=== PATIENT | male | born 1950 | race Caucasian/White ===

== ENCOUNTER 2016-08-19 19:49 | Emergency (ER) | payer MEDICARE, OTHER ==
[2016-08-19] MEDS ORDERED: methylPREDNISolone Sodium Succinate 125 MG/2 ML SDV IM ONE (20:23)
--- NOTE | 2016-08-19 20:30 | EDM.PDOC ---
ED HPI Allergic Reaction - General Chief Complaint: Allergic Reaction Stated Complaint: POSSIBLE ALLERGIC REACTION- THROAT SWELLING; WOOZY Time Seen by Provider: 08/19/16 20:20 Source of Information: Reports: Patient History Limitations: Reports: No limitations - History of Present Illness INITIAL COMMENTS - FREE TEXT/NARRATIVE: AndHISTORY AND PHYSICAL: History of present illness: [66-year-old male with a history of allergy to shrimp as well as sulfa antibiotics, now presents emergency department with hives and itching after eating shrimp earlier today. Patient had hives as a child when he would eat shrimp. As an adult patient often eats shrimp and states he only gets hives if he eats a lot. He did eat them today after which he had hives and itching. No voice changes difficulty breathing or wheezing Review of systems: As per history of present illness and below otherwise all systems reviewed and negative. Past medical history: As per history of present illness and as reviewed below otherwise noncontributory. Surgical history: As per history of present illness and as reviewed below otherwise noncontributory. Social history: No reported history of drug or alcohol abuse. Family history: As per history of present illness and as reviewed below otherwise noncontributory. Physical exam: Patient with mild diffuse urticaria. Normal oropharynx, normal voice no stridor no wheezing no tachypnea or respirate symptoms whatsoever HEENT: Atraumatic, normocephalic, pupils reactive, negative for conjunctival pallor or scleral icterus, mucous membranes moist, throat clear, neck supple, nontender, trachea midline. Lungs: Clear to auscultation, breath sounds equal bilaterally, chest nontender. Heart: S1S2, regular, negative for clicks, rubs, or JVD. Abdomen: Soft, nondistended, nontender. Negative for masses or hepatosplenomegaly. Negative for costovertebral tenderness. Pelvis: Stable nontender. Genitourinary: Deferred. Rectal: Deferred. Extremities: Atraumatic, negative for cords or calf pain. Neurovascular unremarkable. Neuro: Awake, alert, oriented. Cranial nerves grossly unremarkable. Cerebellum unremarkable. Motor and sensory unremarkable throughout. Exam nonfocal. Diagnostics: [] Therapeutics: [] Impression: [] Plan: [Signs and symptoms consistent with mild allergic reaction systemic with urticaria and mild itching, but no evidence of anaphylaxis. Patient did eat shrimp which he knows is allergic to. Steroids given patient aware to take steroids daily use Benadryl and Pepcid as needed and followup with PCP tomorrow. Patient aware to return immediately for any signs of airway involvement new severe or worsening symptoms. No further workup or treatment indicated. Patient agrees with outpatient followup and strict return precautions given Definitive disposition and diagnosis as appropriate pending reevaluation and review of above. - Related Data Allergies/ADRs: Allergies Allergy/AdvReac Type Severity Reaction Status Date / Time Sulfa (Sulfonamide Allergy Cannot Verified 08/19/16 20:15 Antibiotics) Remember Home Meds: Home Meds Dalfampridine [Ampyra] 10 mg PO BID 02/27/14 [History] Lisinopril 20 mg PO DAILY 02/27/14 [History] Pioglitazone HCl [Actos] 45 mg PO DAILY 02/27/14 [History] sitaGLIPtin Phos/Metformin HCl [Janumet 50-1,000 MG] 2,000 mg PO DAILY 02/27/14 [History] Aspirin [[place] Aspirin] 81 mg PO DAILY 09/15/14 [History] Calcium Carbonate/Vitamin D3 [Calcium 600 + Vit D 400] 1 tab PO DAILY 09/15/14 [ History] Cyanocobalamin (Vitamin B-12) [Vitamin B-12] 1 tab PO DAILY 09/15/14 [History] Hydrocodone/Acetaminophen [Hydrocodon-Acetaminoph 7.5-325] 1 tab PO ASDIRECTED PRN 09/15/14 [History] Mirtazapine [Remeron] 30 mg PO BEDTIME PRN 09/15/14 [History] Multivitamin [Multivitamins] 1 tab PO DAILY 09/15/14 [History] amLODIPine Besylate [Amlodipine Besylate] 5 mg PO DAILY 09/15/14 [History] atorvaSTATin Calcium [Atorvastatin Calcium] 10 mg PO DAILY 09/15/14 [History] traMADol [Ultram] 1 tab PO Q4HR PRN 09/15/14 [History] Prednisone [IMW: predniSONE] 60 mg PO WITHBREAKFAST #5 tab 08/19/16 [Rx] Past Medical History HEENT History: Reports: Other (see below) Other HEENT History: on glasses Cardiovascular History: Reports: Hypertension Respiratory History: Reports: None Gastrointestinal History: Reports: None Genitourinary History: Reports: None Musculoskeletal History: Reports: None Neurological History: Reports: MS Psychiatric History: Reports: None Endocrine/Metabolic History: Reports: Diabetes, type II Hematologic History: Reports: None Oncologic (Cancer) History: Reports: None Dermatologic History: Reports: None - Infectious Disease History Infectious Disease History: Reports: None Social & Family History - Family History Family Medical History: Noncontributory - Tobacco Use Smoking Status *Q: Former Smoker (quit 47 years ago) Years of Tobacco use: 20 Used Tobacco, but Quit: Yes Second Hand Smoke Exposure: No - Alcohol Use Days Per Week of Alcohol Use: 1 - Recreational Drug Use Recreational Drug Use: No Drug Use in Last 12 Months: No ED ROS ALLERGIC REACTION - Review of Systems Review Of Systems: See Below (History of present illness) ED EXAM GENERAL NO PERIP PULSE - Physical Exam Exam: See Below (History of present illness) Course - Vital Signs Last Recorded V/S: Last Vital Signs Temp 36.4 C 08/19/16 20:15 Pulse 108 H 08/19/16 20:15 Resp 18 08/19/16 20:15 BP 104/75 08/19/16 20:15 Pulse Ox 97 08/19/16 20:15 - Orders/Labs/Meds Meds: Medications Discontinued Medications Generic Name Dose Route Start Last Admin Trade Name Cliff PRN Reason Stop Dose Admin Methylprednisolone Sodium Succinate 125 mg 08/19/16 20:23 Solu-Medrol IM 08/19/16 20:24 ONETIME ONE Departure - Departure Time of Disposition: 20:30 Disposition: Home, Self-Care 01 Condition: good Clinical Impression: Allergic reaction, Urticaria Prescriptions: Prednisone [IMW: predniSONE] 60 mg PO WITHBREAKFAST #5 tab Referrals: Reza Álvarez MD [Primary Care Provider] - Additional Instructions: Your hives today suggest that you are having an allergic reaction most likely to shrimp since you enjoyed some today and you know you are allergic to them. He be given a dose of steroids today. Take steroid prescription as written starting tomorrow. Use Benadryl and Pepcid as encountered as discussed as needed for itching and symptoms of allergic reaction. Return immediately for any signs of airway involvement wheezing voice changes or difficulty breathing.
[2016-08-19 21:23] VITALS: BP 112/65
== END 2016-08-19 21:05 | disposition home or self-care (01) ==
LOC: MW.ED 19:49
DX: T78.1XXA Other adverse food reactions, not elsewhere classified, initial encounter (principal); L50.9 Urticaria, unspecified; I10 Essential (primary) hypertension; E11.9 Type 2 diabetes mellitus without complications; Z88.2 Allergy status to sulfonamides; Z79.899 Other long term (current) drug therapy; Z79.82 Long term (current) use of aspirin; Z87.891 Personal history of nicotine dependence
CPT/HCPCS: 96372; 99283; J2930

== ENCOUNTER 2022-09-17 07:36 | Emergency (ER) | payer MEDICARE, OTHER ==
[2022-09-17] MEDS ORDERED: Sodium Chloride 0.9% 2.5 ML Syringe FLUSH PRN (07:56)
[2022-09-17] MEDS ORDERED: Sodium Chloride 0.9% 10 ML Syringe FLUSH PRN (07:56)
[2022-09-17 08:01] LABS: BASOPHILS PERCENT AUTO 0.3 % (0.0-1.5); EOSINOPHILS ABSOLUTE AUTO 0.2 K/uL (0.0-0.7); EOSINOPHILS PERCENT AUTO 1.9 % (0.0-7.0); HEMATOCRIT 42.4 % (38.0-50.0); HEMOGLOBIN 14.2 g/dL (13.0-17.0); LYMPHOCYTES ABSOLUTE AUTO 1.9 K/uL (0.6-2.4); LYMPHOCYTES PERCENT AUTO 24.3 % (16.0-40.0); MEAN CORPUSCULAR HEMOGLOBIN 29.9 pg (27.0-32.0); MEAN CORPUSCULAR HGB CONC 33.5 g/dL (31.0-37.0); MEAN CORPUSCULAR VOLUME 89.3 fL (80.0-98.0); MONOCYTES ABSOLUTE AUTO 0.5 K/uL (0.0-0.8); MONOCYTES PERCENT AUTO 5.8 % (0.0-15.0); NEUTROPHILS ABSOLUTE AUTO 5.3 K/uL (1.4-5.7); NEUTROPHILS PERCENT AUTO 67.7 % (48.0-80.0); NRBC ABSOLUTE 0 K/uL; PLATELET COUNT,PLT 220 K/uL (150-400); RED BLOOD CELL COUNT 4.75 M/uL (4.50-5.90); WHITE BLOOD CELL COUNT,WBC 7.89 K/uL (4.0-11.0)
[2022-09-17 08:21] LABS: A/G RATIO 1.1 (0.9-1.6); ALBUMIN 3.7 g/dL (3.4-5.0); BILIRUBIN TOTAL 0.4 mg/dL (0.2-1.0); CALCIUM 8.9 mg/dL (8.5-10.1); CARBON DIOXIDE,CO2 27.2 mmol/L (21.0-32.0); CREATININE 0.9 mg/dL (0.8-1.3); EST CRCL DRUG DOSING (CG) 80.18 mL/min; POTASSIUM,K 4.2 mmol/L (3.5-5.1); PROTEIN TOTAL,TP 7.1 g/dL (6.4-8.2)
[2022-09-17 10:47] VITALS: BP 151/71; PULSE 64
== END 2022-09-17 10:47 | disposition home or self-care (01) ==
LOC: MW.ED 07:36
DX: R07.89 Other chest pain (principal); I10 Essential (primary) hypertension; E11.9 Type 2 diabetes mellitus without complications; I25.2 Old myocardial infarction; Z88.2 Allergy status to sulfonamides; Z79.02 Long term (current) use of antithrombotics/antiplatelets; Z79.84 Long term (current) use of oral hypoglycemic drugs; Z79.899 Other long term (current) drug therapy
CPT/HCPCS: 36415; 71046; 80053; 84484; 85025; 93005; 99285; J3490; 93010; 99283

== ENCOUNTER 2022-09-24 18:39 | Emergency (ER) | payer MEDICARE, OTHER ==
[2022-09-24 18:58] LABS: BASOPHILS PERCENT AUTO 0.3 % (0.0-1.5); EOSINOPHILS ABSOLUTE AUTO 0.2 K/uL (0.0-0.7); EOSINOPHILS PERCENT AUTO 1.8 % (0.0-7.0); HEMATOCRIT 40.4 % (38.0-50.0); HEMOGLOBIN 13.8 g/dL (13.0-17.0); LYMPHOCYTES ABSOLUTE AUTO 2.1 K/uL (0.6-2.4); LYMPHOCYTES PERCENT AUTO 22.2 % (16.0-40.0); MEAN CORPUSCULAR HGB CONC 34.2 g/dL (31.0-37.0); MEAN CORPUSCULAR VOLUME 87.8 fL (80.0-98.0); MONOCYTES ABSOLUTE AUTO 0.6 K/uL (0.0-0.8); MONOCYTES PERCENT AUTO 6.6 % (0.0-15.0); NEUTROPHILS ABSOLUTE AUTO 6.7 K/uL (1.4-5.7); NEUTROPHILS PERCENT AUTO 69.1 % (48.0-80.0); NRBC ABSOLUTE 0 K/uL; PLATELET COUNT,PLT 229 K/uL (150-400); WHITE BLOOD CELL COUNT,WBC 9.63 K/uL (4.0-11.0)
[2022-09-24 19:30] LABS: ALBUMIN 3.5 g/dL (3.4-5.0); BILIRUBIN TOTAL 0.5 mg/dL (0.2-1.0); CALCIUM 8.1 mg/dL (8.5-10.1); CARBON DIOXIDE,CO2 27.2 mmol/L (21.0-32.0); EST CRCL DRUG DOSING (CG) 72.16 mL/min; POTASSIUM,K 4.1 mmol/L (3.5-5.1); PROTEIN TOTAL,TP 6.9 g/dL (6.4-8.2); TSH ULTRASENSITIVE 1.93 uIU/mL (0.36-3.74)
[2022-09-24 20:36] VITALS: BP 135/83; PULSE 82
[2022-09-24] MEDS ORDERED: Sodium Chloride 0.9% 1,000 ML IV ONE (21:25)
[2022-09-24] MEDS ORDERED: Enoxaparin 100 MG/1 ML Syringe SUBCUT ONE (21:25)
== END 2022-09-24 22:15 ==
LOC: MW.ED 18:39
DX: I21.4 Non-ST elevation (NSTEMI) myocardial infarction (principal); I10 Essential (primary) hypertension; I25.2 Old myocardial infarction; E11.9 Type 2 diabetes mellitus without complications; Z88.2 Allergy status to sulfonamides; Z79.84 Long term (current) use of oral hypoglycemic drugs; Z79.02 Long term (current) use of antithrombotics/antiplatelets; Z79.899 Other long term (current) drug therapy
CPT/HCPCS: 36415; 71045; 80053; 84443; 84484; 85025; 93005; 96360; 96372; 99285; J1650; J7030; 93010